=== PATIENT | male | born 1945 | race Caucasian/White ===

== ENCOUNTER → 2016-10-31 | Outpatient (CLI) | payer OTHER | LOC: BMCIMAGING 10:00 | PROVIDERS: ATTEND Internal Medicine | DX: Z13.820 Encounter for screening for osteoporosis (principal); M81.0 Age-related osteoporosis without current pathological fracture ==

== ENCOUNTER 2017-12-18 19:44 | Emergency (ER) | payer OTHER ==
[2017-12-18 19:52] VITALS: BP 143/85
--- NOTE | 2017-12-18 20:19 | EDPHY ---
H & P Stated Complaint: [facility] hold Source: Patient, Police, RN/MD Exam Limitations: Intoxication - Personal History Current Tetanus/Diphtheria Vaccine: Unsure Current Tetanus Diphtheria and Acellular Pertussis (TDAP): Unsure - Medical/Surgical History Hx Asthma: No Hx Chronic Respiratory Disease: No Hx Diabetes: No Hx Cardiac Disease: No Hx Renal Disease: No Hx Cirrhosis: No Hx Alcoholism: No Hx HIV/AIDS: No Hx Splenectomy or Spleen Trauma: No Other PMH: hernia repair - Social History Smoking Status: Never smoked Time Seen by Provider: 12/18/17 20:20 HPI/ROS: HPI: This is a 72-year-old male who presents with Chief Complaint: Alcohol intoxication, [facility] hold Location: body Quality:alcohol intoxication Duration: today Signs and Symptoms: no fever, no nausea, no vomiting, no hematemesis, no blood in stool, no abdominal bloating, no diarrhea, no back pain, no urinary symptoms , no testicular/groin pain, no indigestion, no chest pain, no shortness of breath Timing:acute on chronic Severity: moderate Context: Patient has a history of alcoholism presents via police on [facility] hold. They respondent was found passed out and bleeding from the knee cap and upper lip. He reports having martinis today and was walking home. He reports that he lost his balance and fell into the dirt. Responded swelling himself and displayed inappropriate behavior. He had a hard time standing on his own. He lives by himself. The information security officer felt like he was a danger to himself and his current intoxicated state. He was taken to [facility] via ambulance. Denies head injury, neck pain, abdominal pain, nausea, vomiting, dizziness. Reports tetanus is current. Modifying Factors: None Comment: ROS: see HPI Constitutional: No fever, no chills, no weight loss Eyes: No blurred vision Respiratory: No shortness of breath, no cough Cardiovascular: No chest pain, no palpitations Gastrointestinal: No nausea, no vomiting, no diarrhea, no hematemesis, no blood in stool Genitourinary: No dysuria, no blood in urine Extremities: No myalgias, no edema Neurologic: No weakness, no numbness Skin: No rashes, no petechiae Hematologic: No bruising, no bleeding MEDICAL/SURGICAL/SOCIAL HISTORY: Medical history: Alcoholism. Does not take any regular medications. Surgical history: Hernia repair Social history: Family history noncontributory. CONSTITUTIONAL: Patient is clearly intoxicated elderly white male, wearing a hat sunglasses, smells of stool, awake and alert, no obvious distress HEENT: Atraumatic and normocephalic, PERRL, EOMI. Nares patent; no rhinorrhea; no nasal mucosal edema. Tympanic membranes clear. Oropharynx clear, no exudate and moist pink mucosa. Airway patent. No lymphadenopathy. No meningismus. Cardiovascular: Normal S1/S2, tachycardia, regular rhythm, without murmur rub or gallop. PULMONARY/CHEST: Symmetrical and nontender. Clear to auscultation bilaterally. Good air movement. No accessory muscle usage. ABDOMEN: Soft, nondistended, nontender, no rebound, no guarding, no peritoneal signs, no masses or organomegaly. No CVAT. EXTREMITIES: 2/2 pulses, strength 5/5, left KNEE: no effusion, no medial and lateral joint line tenderness, full extension to 180, flexion to 120. No pain with varus and valgus exam. No pain with anterior drawer or posterior drawer test. no deformities, no clubbing, no cyanosis or edema. NEUROLOGICAL: no focal neuro deficits. GCS 15. SKIN: Warm and dry, superficial abrasion that has no active bleeding noted to left knee. no erythema. no rash. Good capillary refill. (Miriam Tadeo) Constitutional: Initial Vital Signs Temperature (C) 36.7 C 12/18/17 19:50 Heart Rate 102 H 12/18/17 19:50 Respiratory Rate 16 12/18/17 19:50 Blood Pressure 143/85 H 12/18/17 19:50 O2 Sat (%) 93 12/18/17 19:50 O2 Delivery Mode Room Air Allergies/Adverse Reactions: No Known Allergies Allergy (Unverified 12/18/17 19:52) Home Medications: Medication Instructions Recorded NK [No Known Home Meds] 12/18/17 Medical Decision Making ED Course/Re-evaluation: Vital signs reviewed upon arrival in show mild tachycardia. Agree with [facility] hold by police at 1900. Patient is currently intoxicated but calm and cooperative. Superficial laceration of the lip is less than 1 mm and does not require suture. 50/50 solution of hydrogen peroxide and water were used to rinse out his mouth. Left knee abrasion was cleaned with soap and water bacitracin clean sterile dressing applied. Patient had a normal physical exam and patient politely declined x-ray imaging. I do not feel that based on [place] CT head protocol and NEXUS protocol that patient warrants head CT or cervical CT scans. 2100: Patient ambulatory without ataxia. [facility] care of police. This patient was seen under the supervision of my secondary supervising physician. I evaluated care for this patient independently. Discussed this patient with Dr. Ordonez. (Miriam Tadeo) I did not see this patient while he was in the emergency department. However his care was discussed with the PA while the patient was in the department. I agree with treatment plan and management (Maynor Ordonez) Differential Diagnosis: Differential diagnosis includes but is not limited to electrolyte imbalance, intoxicated use, knee sprain, contusion, abrasion, lip laceration. (Miriam Tadeo) - Data Points Medications Given: Discontinued Medications Diphtheria/Tetanus/Acell Pertussis (Boostrix) 0.5 ml IM .ONCE ONE Stop: 12/18/17 20:26 Last Admin: 12/18/17 20:30 Dose: 0.5 ml Departure - Departure Disposition: Home, Routine, Self-Care Clinical Impression: Alcohol intoxication Qualifiers: Complication of substance-induced condition: uncomplicated Qualified Code(s): F10.920 - Alcohol use, unspecified with intoxication, uncomplicated Abrasion of knee, left Qualifiers: Encounter type: initial encounter Qualified Code(s): S80.212A - Abrasion, left knee, initial encounter Condition: Fair Instructions: Alcohol Intoxication (ED), Abuse of Alcohol (ED) Additional Instructions: Please refrain from drinking alcohol excessively. Wash abrasions daily with mild soap and water; then pat dry. Take Tylenol 650 mg every 4 hours and/or Ibuprofen 600 mg every 8 hours with food as needed for pain. Referrals: [facility] 24 Hours [Outside] - As per Instructions
[2017-12-18] MEDS ORDERED: TDAP ADULT 0.5 ML INJ (BOOSTRIX) IM ONE (20:25)
== END 2017-12-18 20:49 | disposition home or self-care (01) ==
LOC: EDUNIT#
DX: S80.212A Abrasion, left knee, initial encounter (principal); F10.920 Alcohol use, unspecified with intoxication, uncomplicated; Z23 Encounter for immunization; W01.0XXA Fall on same level from slipping, tripping and stumbling without subsequent striking against object, initial encounter; Y92.009 Unspecified place in unspecified non-institutional (private) residence as the place of occurrence of the external cause; Y99.8 Other external cause status; Y93.01 Activity, walking, marching and hiking